=== PATIENT | male | born 1985 | race Caucasian/White ===

== ENCOUNTER 2018-01-15 14:49 | Emergency (ER) | payer OTHER ==
[~2018-01-15] VITALS: Ht 175.3 cm; Wt 95.0 kg
[2018-01-15 15:15] LABS: HEMATOCRIT 41.7 % (38.0-50.0); HEMOGLOBIN 14.7 G/DL (12.5-16.6); MCH 28.8 PG (29.0-34.0); MCHC 35.3 G/DL (30.0-36.0); MCV 81.6 FL (86-99); PLATELET COUNT 285 K/uL (156-360); RBC DIS.WIDTH-CV 12.6 % (11.8-14.6); RBC DIS.WIDTH-SD 37.2 % (39-53); RED BLOOD COUNT 5.11 M/uL (4.00-5.50); WHITE BLOOD COUNT 7.8 K/uL (4.1-10.2)
[2018-01-15 15:25] LABS: ALBUMIN 4.7 g/dL (3.2-4.8); CHLORIDE 104 mEq/L (99-109); POTASSIUM 3.9 mEq/L (3.7-5.4); SODIUM 140 mEq/L (136-147)
[2018-01-15 15:28] LABS: GLUCOSE 110 mg/dL (70-99); TOTAL PROTEIN 7.8 g/dL (6.4-8.3)
[2018-01-15 15:30] LABS: TOTAL BILIRUBIN 0.8 mg/dL (0.0-1.0)
[2018-01-15 15:31] LABS: ALKALINE PHOSPHATASE 78 IU/L (3-129); GFR ESTIMATE (CALCULATED) > 59 mL/min/ (58.99-99999)
[2018-01-15 15:32] LABS: UREA NITROGEN (BUN) 14 mg/dL (9-23)
[2018-01-15 15:33] LABS: AST (GOT) 23 IU/L (2-34)
[2018-01-15 15:34] LABS: ALT (GPT) 40 IU/L (3-49)
[2018-01-15] MEDS ORDERED: SILVADENE,SSD,T50 GM TP (16:58)
[2018-01-15] MEDS ORDERED: PERCOCET 5/31 TABLET PO (16:58)
[2018-01-15 17:54] VITALS: BP 148/89
== END 2018-01-15 17:55 | disposition home or self-care (01) ==
LOC: EME 14:49
PROVIDERS: Emergency Medicine
DX: T22.20XA Burn of second degree of shoulder and upper limb, except wrist and hand, unspecified site, initial encounter (principal); T23.101A Burn of first degree of right hand, unspecified site, initial encounter; T31.0 Burns involving less than 10% of body surface; T52.0X1A Toxic effect of petroleum products, accidental (unintentional), initial encounter; F41.9 Anxiety disorder, unspecified; Z88.0 Allergy status to penicillin
CPT/HCPCS: 80053; 85027; 99281; 99285; J2270; J7120